=== PATIENT | female | born 1965 | race American Indian/Alaskan Native ===

== ENCOUNTER 2016-09-28 08:01 | Inpatient (IN) | payer MEDICAID, OTHER ==
[2016-09-28] MEDS ORDERED: Ondansetron 4 MG/2 ML SDV IVPUSH ONE (08:02)
[2016-09-28] MEDS: Nitroglycerin 0.4 MG Tab.SL SL PRN ×2 (08:18→08:29)
[2016-09-28] MEDS ORDERED: LORazepam 2 MG/ML MDV IVPUSH ONE (08:23)
[2016-09-28] MEDS ORDERED: HYDROmorphone 1 MG/ML Syringe IVPUSH ONE (08:37)
--- NOTE | 2016-09-28 08:37 | EDM.PDOC ---
[id number] [facility] Time Seen by Provider: 09/28/16 08:05 Source: Reports: Patient, EMS notes reviewed History Limitations: Reports: No limitations - History of Present Illness INITIAL COMMENTS - FREE TEXT/NARRATIVE: Pt developed chest pain in the nite. She began to vomit this am and has been vomiting all am. She is having left sided chest pain and she is continuously wretching. Timing/Duration: Reports: Hour(s):, Getting worse, Other ( vomiting continuously ) Location, General: Reports: chest, abdomen Associated Symptoms: Reports: chest pain, nausea/vomiting - Related Data Allergies/ADRs: Allergies Allergy/AdvReac Type Severity Reaction Status Date / Time No Known Allergies Allergy Verified 09/28/16 08:09 Home Meds: Home Meds Calcium Citrate/Vitamin D3 [[place] Calcium-Vit D 200-250] 2 tab PO BID 09/28/16 [History] Gabapentin [Neurontin] 300 mg PO TID 09/28/16 [History] Insulin Aspart [Novolog Flexpen] 1 unit SQ BID 09/28/16 [History] Insulin Detemir [Levemir Flextouch] 24 unit SQ BEDTIME 09/28/16 [History] PARoxetine HCl [Paroxetine HCl] 20 mg PO DAILY 09/28/16 [History] busPIRone HCl [Buspirone HCl] 10 mg PO TID 09/28/16 [History] 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: Psychiatric History: Reports: Anxiety, Depression, PTSD Endocrine/Metabolic History: Reports: Diabetes, type II - Past Surgical History GI Surgical History: Reports: Appendectomy, Cholecystectomy Female Surgical History: Reports: section Social & Family History - Tobacco Use Smoking Status *Q: Never Smoker Second Hand Smoke Exposure: No - Caffeine Use Caffeine Use: Reports: Coffee - Alcohol Use Days Per Week of Alcohol Use: 0 - Recreational Drug Use Recreational Drug Use: Yes Recreational Drug Type: Reports: Marijuana/Hashish Recreational Drug Use Frequency: Socially ED ROS GENERAL - Review of Systems Review Of Systems: See Below Constitutional: Reports: weakness, fatigue HEENT: Reports: No symptoms Respiratory: Reports: No Symptoms Cardiovascular: Reports: Chest pain Endocrine: Reports: high glucose GI/Abdominal: Reports: Abdominal pain, Nausea, Vomiting : Reports: no symptoms Musculoskeletal: Reports: no symptoms Skin: Reports: no symptoms Neurological: Reports: No Symptoms Psychiatric: Reports: Agitation, Anxiety Immunologic: Reports: no symptoms ED EXAM, GENERAL - Physical Exam Exam: See Below Free Text/Narrative:: Pt arrived with left sided chest pain. She has been vomiting all am. She has no cardiac history. She did have chest pain all nite into the am. Exam Limited By: No limitations General Appearance: alert, anxious, severe distress, other (Pt has been at [facility] about 9 days. She developed chest pain in the nite and has been vomiting all nite. ) Ears: normal TMs Nose: normal inspection Throat/Mouth: Normal inspection Head: atraumatic Neck: normal inspection Respiratory/Chest: no respiratory distress Cardiovascular: regular rate, rhythm GI/Abdominal: soft, other (Pt has sig epigastric tenderness) Rectal (Female) Exam: Deferred Back Exam: normal inspection Extremities: normal inspection Neurological: alert, oriented, normal cognition Psychiatric: depressed mood Course - Vital Signs Last Recorded V/S: Last Vital Signs Temp 37.2 C 09/29/16 07:53 Pulse 77 09/29/16 07:53 Resp 19 09/29/16 07:53 BP 151/71 H 09/29/16 07:53 Pulse Ox 100 09/29/16 07:53 - Orders/Labs/Meds Labs: Laboratory Tests 09/28/16 09/28/16 09/28/16 Range/Units 00:05 08:05 08:05 WBC 7.9 (4.5-11.0) K/uL RBC 5.13 (3.30-5.50) M/uL Hgb 14.5 (12.0-15.0) g/dL Hct 42.3 (36.0-48.0) % MCV 83 (80-98) fL MCH 28 (27-31) pg MCHC 34 (32-36) % Plt Count 378 (150-400) K/uL Neut % (Auto) 71 H (36-66) % Lymph % (Auto) 21 L (24-44) % [place] % (Auto) 4 (2-6) % Eos % (Auto) 3 (2-4) % Baso % (Auto) 2 H (0-1) % PT (9.5-12.0) sec INR (0.80-1.20) Sodium (140-148) mmol/L Potassium (3.6-5.2) mmol/L Chloride (100-108) mmol/L Carbon Dioxide (21-32) mmol/L Anion Gap (5.0-14.0) mmol/L BUN (7-18) mg/dL Creatinine (0.6-1.0) mg/dL Est Cr Clr Drug Dosing mL/min Estimated GFR (MDRD) (>60) Glucose (74-106) mg/dL Calcium (8.5-10.1) mg/dL Total Bilirubin (0.2-1.0) mg/dL AST (15-37) U/L ALT (12-78) U/L Alkaline Phosphatase (46-116) U/L Creatine Kinase 34 (26-192) U/L CK-MB (CK-2) 0.0 (0-3.6) mg/mL Troponin I < 0.017 < 0.017 (0.000-0.056) ng/mL C-Reactive Protein (0.0-0.3) mg/dL Total Protein (6.4-8.2) g/dL Albumin (3.4-5.0) g/dL Globulin (2.3-3.5) g/dL Albumin/Globulin Ratio (1.2-2.2) Amylase (25-115) U/L Lipase 575 H (73-393) U/L 09/28/16 09/28/16 09/28/16 Range/Units 08:05 08:05 08:05 WBC (4.5-11.0) K/uL RBC (3.30-5.50) M/uL Hgb (12.0-15.0) g/dL Hct (36.0-48.0) % MCV (80-98) fL MCH (27-31) pg MCHC (32-36) % Plt Count (150-400) K/uL Neut % (Auto) (36-66) % Lymph % (Auto) (24-44) % [place] % (Auto) (2-6) % Eos % (Auto) (2-4) % Baso % (Auto) (0-1) % PT 10.0 (9.5-12.0) sec INR 0.95 (0.80-1.20) Sodium 143 (140-148) mmol/L Potassium 4.1 (3.6-5.2) mmol/L Chloride 107 (100-108) mmol/L Carbon Dioxide 23 (21-32) mmol/L Anion Gap 12.9 (5.0-14.0) mmol/L BUN 13 (7-18) mg/dL Creatinine 0.7 (0.6-1.0) mg/dL Est Cr Clr Drug Dosing 70.13 mL/min Estimated GFR (MDRD) > 60 (>60) Glucose 333 H (74-106) mg/dL Calcium 8.8 (8.5-10.1) mg/dL Total Bilirubin 0.4 (0.2-1.0) mg/dL AST 15 (15-37) U/L ALT 30 (12-78) U/L Alkaline Phosphatase 79 (46-116) U/L Creatine Kinase 56 (26-192) U/L CK-MB (CK-2) (0-3.6) mg/mL Troponin I (0.000-0.056) ng/mL C-Reactive Protein (0.0-0.3) mg/dL Total Protein 7.7 (6.4-8.2) g/dL Albumin 4.0 (3.4-5.0) g/dL Globulin 3.7 H (2.3-3.5) g/dL Albumin/Globulin Ratio 1.1 L (1.2-2.2) Amylase 81 (25-115) U/L Lipase 416 H (73-393) U/L 09/28/16 Range/Units 08:52 WBC (4.5-11.0) K/uL RBC (3.30-5.50) M/uL Hgb (12.0-15.0) g/dL Hct (36.0-48.0) % MCV (80-98) fL MCH (27-31) pg MCHC (32-36) % Plt Count (150-400) K/uL Neut % (Auto) (36-66) % Lymph % (Auto) (24-44) % [place] % (Auto) (2-6) % Eos % (Auto) (2-4) % Baso % (Auto) (0-1) % PT (9.5-12.0) sec INR (0.80-1.20) Sodium (140-148) mmol/L Potassium (3.6-5.2) mmol/L Chloride (100-108) mmol/L Carbon Dioxide (21-32) mmol/L Anion Gap (5.0-14.0) mmol/L BUN (7-18) mg/dL Creatinine (0.6-1.0) mg/dL Est Cr Clr Drug Dosing mL/min Estimated GFR (MDRD) (>60) Glucose (74-106) mg/dL Calcium (8.5-10.1) mg/dL Total Bilirubin (0.2-1.0) mg/dL AST (15-37) U/L ALT (12-78) U/L Alkaline Phosphatase (46-116) U/L Creatine Kinase (26-192) U/L CK-MB (CK-2) (0-3.6) mg/mL Troponin I (0.000-0.056) ng/mL C-Reactive Protein 0.14 (0.0-0.3) mg/dL Total Protein (6.4-8.2) g/dL Albumin (3.4-5.0) g/dL Globulin (2.3-3.5) g/dL Albumin/Globulin Ratio (1.2-2.2) Amylase (25-115) U/L Lipase (73-393) U/L Meds: Medications Discontinued Medications Generic Name Dose Route Start Last Admin Trade Name Freq PRN Reason Stop Dose Admin Acetaminophen 650 mg 09/28/16 10:48 09/29/16 07:28 Tylenol PO 650 mg Q4H PRN Administration Pain Buspirone HCl 10 mg 09/28/16 14:00 09/29/16 08:34 Buspar PO 10 mg TID EYAL Administration Calcium Carbonate 1 tab 09/28/16 21:00 09/29/16 08:34 Caltrate 600+D 1500 Mg-400 Units PO 1 tab BID EYAL Administration Dextrose 15 gm 09/28/16 10:49 Glutose 15 PO ASDIRECTED PRN HYPOGLYCEMIA Dextrose/Water 50 ml 09/28/16 10:49 Dextrose 50% In Water IVPUSH ASDIRECTED PRN HYPOGLYCEMIA Enoxaparin Sodium 40 mg 09/28/16 21:00 09/28/16 20:41 Lovenox SUBCUT 40 mg BEDTIME EYAL Administration Gabapentin 300 mg 09/28/16 14:00 09/29/16 08:34 Neurontin PO 300 mg TID EYAL Administration Glucagon 1 mg 09/28/16 10:49 Glucagen IM ASDIRECTED PRN HYPOGLYCEMIA Hydromorphone HCl 1 mg 09/28/16 08:37 09/28/16 08:45 Dilaudid IVPUSH 09/28/16 08:38 1 mg ONETIME ONE Administration Sodium Chloride 1,000 mls @ 999 mls/hr 09/28/16 09:00 09/28/16 08:56 Normal Saline IV 999 mls/hr ASDIRECTED EYAL Administration Insulin Aspart 0 - 5 unit 09/28/16 10:49 09/29/16 07:28 Novolog SUBCUT 1 units QID PRN Administration LOW CORRECTIONAL DOSE Protocol Insulin Detemir 24 unit 09/28/16 21:00 09/28/16 20:41 Levemir SUBCUT 24 units BEDTIME EYAL Administration Lorazepam 0.5 mg 09/28/16 08:23 09/28/16 08:49 Ativan IVPUSH 09/28/16 08:24 0.5 mg ONETIME ONE Administration Nitroglycerin 0.4 mg 09/28/16 08:14 09/28/16 08:29 Nitrostat SL 09/28/16 08:25 0.4 mg Q5M PRN Administration Chest Pain Ondansetron HCl 4 mg 09/28/16 08:02 09/28/16 08:15 Zofran IVPUSH 09/28/16 08:03 4 mg ONETIME ONE Administration Ondansetron HCl 4 mg 09/28/16 10:48 Zofran Odt PO Q4H PRN Nausea/Vomiting Ondansetron HCl 4 mg 09/28/16 10:48 Zofran IVPUSH Q4H PRN Nausea/Vomiting Paroxetine HCl 20 mg 09/28/16 11:00 09/29/16 08:34 Paxil PO 20 mg DAILY EYAL Administration Sodium Chloride 10 ml 09/28/16 09:16 Saline Flush FLUSH ASDIRECTED PRN Keep Vein Open - Re-Assessments/Exams Free Text/Narrative Re-Assessment/Exam: 09/28/16 08:[address] elevation. This could be a normal variant for her. She has continued to vomit markedly. She has a normal trop and she has a mild elevation in her lipase. ;l Departure - Departure Time of Disposition: 07:55 Disposition: Admitted As Inpatient 64 Reason for Transfer *Q: Primary PCI Indicated Condition: fair Clinical Impression: Pancreatitis, Atypical chest pain
[2016-09-28] MEDS ORDERED: Sodium Chloride 0.9% 1,000 ML IV SCH (09:00)
[2016-09-28] MEDS ORDERED: Sodium Chloride 0.9% 10 ML Syringe FLUSH PRN (09:16)
--- NOTE | 2016-09-28 09:49 | PCM.HP ---
H&P History of Present Illness - General Date of Service: 09/28/16 Admit Problem/Dx: Admission Diagnosis/Problem Admission Diagnosis/Problem Angina - History of Present Illness Initial Comments - Free Text/Narative: Lavonne is a 51-year-old who came to [place] because of drug use denied alcohol. She's been smoking marijuana on a regular basis. She started to have chest pain 11:30 last night that lasted about 1 minute which was a squeezing type sensation but she also had a dull chest pain that would come and go through the night. She had 3 episodes of a squeezing type sensation that he went to the nurse and the nurse gave her nitroglycerin and she became unconscious and EMS was called. She came into the room she was calm admission. She denies any myocardial infarction in the past she said her mother has had a stroke and does not know her father's history. Her other siblings apparently there is no history of any cardiac disease. She also has pain in the epigastric area and she vomited last night. This morning earlier she tried to eat a banana and then that she vomited. She is a known type II diabetic taking insulin on a regular basis. Onset of Symptoms: Reports: today Duration of Symptoms: Reports: Day(s): Location: Reports: chest Quality: Reports: Ache, Dull Severity: moderate Improves with: Reports: None Worsens with: Reports: Eating Anterior Chest Pain Score (Numeric/FACES): 7 - Related Data Allergies/Adverse Reactions: Allergies Allergy/AdvReac Type Severity Reaction Status Date / Time No Known Allergies Allergy Verified 09/28/16 08:09 Home Medications: Home Meds Calcium Citrate/Vitamin D3 [[place] Calcium-Vit D 200-250] 2 tab PO BID 09/28/16 [History] Gabapentin [Neurontin] 300 mg PO TID 09/28/16 [History] Insulin Aspart [Novolog Flexpen] 1 unit SQ BID 09/28/16 [History] Insulin Detemir [Levemir Flextouch] 24 unit SQ BEDTIME 09/28/16 [History] PARoxetine HCl [Paroxetine HCl] 20 mg PO DAILY 09/28/16 [History] busPIRone HCl [Buspirone HCl] 10 mg PO TID 09/28/16 [History] 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: Psychiatric History: Reports: Anxiety, Depression, PTSD Endocrine/Metabolic History: Reports: Diabetes, type II - Past Surgical History GI Surgical History: Reports: Appendectomy, Cholecystectomy Female Surgical History: Reports: section Social & Family History - Tobacco Use Smoking Status *Q: Never Smoker Second Hand Smoke Exposure: No - Caffeine Use Caffeine Use: Reports: Coffee - Alcohol Use Days Per Week of Alcohol Use: 0 - Recreational Drug Use Recreational Drug Use: Yes Recreational Drug Type: Reports: Marijuana/Hashish Recreational Drug Use Frequency: Socially H&P Review of Systems - Review of Systems: Review Of Systems: See Below General: Reports: weakness, fatigue HEENT: Reports: no symptoms Pulmonary: Reports: Shortness of Breath Cardiovascular: Reports: chest pain Gastrointestinal: Reports: Abdominal pain, Vomiting Genitourinary: Reports: no symptoms Musculoskeletal: Reports: back pain Skin: Reports: no symptoms Psychiatric: Reports: depression Exam - Exam Exam: See Below - Vital Signs Vital Signs: Last Vital Signs Temp 98.2 F 09/28/16 08:31 Pulse 62 09/28/16 08:46 Resp 20 09/28/16 08:46 BP 161/95 H 09/28/16 08:46 Pulse Ox 98 09/28/16 08:46 Weight: 145 lb - Exam General: alert, oriented, 4 HEENT: PERRLA, Hearing intact, Mucosa moist & pink, Nares patent, Normal nasal septum, Posterior pharynx clear, Conjunctiva clear, EOMI, EACs clear, TMs clear Neck: supple, trachea midline, 2 Lungs: Clear to auscultation Cardiovascular: regular rate Abdomen: tenderness Extremities: 3, normal inspection, 10 Peripheral Pulses: 1+: radial (L), radial (R) Skin: warm, dry, intact Neuro Extensive - Mental Status: alert, oriented x3, normal mood/affect, normal cognition Neuro Extensive - Motor, Sensory, Reflexes: CN II-XII intact, normal gait, normal reflexes Psychiatric: alert, normal affect, normal mood - Patient Data Lab Results last 24 hrs: Laboratory Results - last 24 hr 09/28/16 09/28/16 09/28/16 Range/Units 08:05 08:05 08:05 WBC 7.9 (4.5-11.0) K/uL RBC 5.13 (3.30-5.50) M/uL Hgb 14.5 (12.0-15.0) g/dL Hct 42.3 (36.0-48.0) % MCV 83 (80-98) fL MCH 28 (27-31) pg MCHC 34 (32-36) % Plt Count 378 (150-400) K/uL Neut % (Auto) 71 H (36-66) % Lymph % (Auto) 21 L (24-44) % [place] % (Auto) 4 (2-6) % Eos % (Auto) 3 (2-4) % Baso % (Auto) 2 H (0-1) % PT (9.5-12.0) sec INR (0.80-1.20) Sodium 143 (140-148) mmol/L Potassium 4.1 (3.6-5.2) mmol/L Chloride 107 (100-108) mmol/L Carbon Dioxide 23 (21-32) mmol/L Anion Gap 12.9 (5.0-14.0) mmol/L BUN 13 (7-18) mg/dL Creatinine 0.7 (0.6-1.0) mg/dL Est Cr Clr Drug Dosing 70.13 mL/min Estimated GFR (MDRD) > 60 (>60) Glucose 333 H (74-106) mg/dL Calcium 8.8 (8.5-10.1) mg/dL Total Bilirubin 0.4 (0.2-1.0) mg/dL AST 15 (15-37) U/L ALT 30 (12-78) U/L Alkaline Phosphatase 79 (46-116) U/L Creatine Kinase 56 (26-192) U/L Troponin I < 0.017 (0.000-0.056) ng/mL C-Reactive Protein (0.0-0.3) mg/dL Total Protein 7.7 (6.4-8.2) g/dL Albumin 4.0 (3.4-5.0) g/dL Globulin 3.7 H (2.3-3.5) g/dL Albumin/Globulin Ratio 1.1 L (1.2-2.2) Amylase (25-115) U/L Lipase (73-393) U/L 09/28/16 09/28/16 09/28/16 Range/Units 08:05 08:05 08:52 WBC (4.5-11.0) K/uL RBC (3.30-5.50) M/uL Hgb (12.0-15.0) g/dL Hct (36.0-48.0) % MCV (80-98) fL MCH (27-31) pg MCHC (32-36) % Plt Count (150-400) K/uL Neut % (Auto) (36-66) % Lymph % (Auto) (24-44) % [place] % (Auto) (2-6) % Eos % (Auto) (2-4) % Baso % (Auto) (0-1) % PT 10.0 (9.5-12.0) sec INR 0.95 (0.80-1.20) Sodium (140-148) mmol/L Potassium (3.6-5.2) mmol/L Chloride (100-108) mmol/L Carbon Dioxide (21-32) mmol/L Anion Gap (5.0-14.0) mmol/L BUN (7-18) mg/dL Creatinine (0.6-1.0) mg/dL Est Cr Clr Drug Dosing mL/min Estimated GFR (MDRD) (>60) Glucose (74-106) mg/dL Calcium (8.5-10.1) mg/dL Total Bilirubin (0.2-1.0) mg/dL AST (15-37) U/L ALT (12-78) U/L Alkaline Phosphatase (46-116) U/L Creatine Kinase (26-192) U/L Troponin I (0.000-0.056) ng/mL C-Reactive Protein 0.14 (0.0-0.3) mg/dL Total Protein (6.4-8.2) g/dL Albumin (3.4-5.0) g/dL Globulin (2.3-3.5) g/dL Albumin/Globulin Ratio (1.2-2.2) Amylase 81 (25-115) U/L Lipase 416 H (73-393) U/L Result Diagrams: 09/29/16 04:20 09/29/16 04:20 *Q Meaningful Use (ADM) - VTE *Q VTE Criteria *Q: - Stroke *Q Stroke Criteria *Q: - AMI *Q AMI Criteria *Q: Problem List Initiated/Reviewed/Updated: Yes Orders Last 24hrs: Active Orders 24 hr Category Date Time Status Patient Status [ADT] Routine ADT 09/28/16 09:16 Ordered Ambulate [RC] QID Care 09/28/16 09:16 Ordered Bedrest Bathroom Privileges [RC] ASDIRECTED Care 09/28/16 09:16 Ordered Blood Glucose Check, Bedside [RC] QIDACANDBED Care 09/28/16 09:16 Ordered Cardiac Monitoring [RC] .As Directed Care 09/28/16 09:19 Ordered EKG Documentation Completion [RC] ASDIRECTED Care 09/28/16 08:02 Active EKG Documentation Completion [RC] ASDIRECTED Care 09/28/16 09:25 Ordered Height and Weight [RC] DAILY Care 09/28/16 09:16 Ordered Intake and Output [RC] QSHIFT Care 09/28/16 09:19 Ordered Oxygen Therapy [RC] PRN Care 09/28/16 09:16 Ordered Up ad Radha [RC] ASDIRECTED Care 09/28/16 09:16 Ordered Up to Chair [RC] QID Care 09/28/16 09:16 Ordered VTE/DVT Education [RC] Per Unit Routine Care 09/28/16 09:16 Ordered Vital Signs [RC] Q4H Care 09/28/16 09:16 Ordered Regular Diet [DIET] Diet 09/28/16 Lunch Ordered Chest 1V Frontal [CR] Stat Exams 09/28/16 08:03 Taken Chest 2V [CR] Routine Exams 09/29/16 05:11 Ordered BASIC METABOLIC PANEL,BMP [CHEM] Routine Lab 09/29/16 05:11 Ordered CBC WITH AUTO DIFF [HEME] AM Lab 09/29/16 05:11 Ordered CK W CKMB [CHEM] Timed Lab 09/28/16 09:16 Ordered CKMB [CHEM] Timed Lab 09/28/16 09:16 Ordered GLUCOSE POC LAB TO COLLECT [POC] QIDACANDBED Lab 09/28/16 11:30 Ordered GLUCOSE POC LAB TO COLLECT [POC] QIDACANDBED Lab 09/28/16 16:30 Ordered GLUCOSE POC LAB TO COLLECT [POC] QIDACANDBED Lab 09/28/16 21:00 Ordered LIPASE [CHEM] Timed Lab 09/28/16 09:29 Ordered TROPONIN I [CHEM] Timed Lab 09/28/16 09:16 Ordered UA W/MICROSCOPIC [URIN] Urgent Lab 09/28/16 08:01 Uncollected Calcium Citrate/Vitamin D3 [[facility] Calcium-Vit D 200- Med 09/28/16 21:00 Ordered 250] 2 tab PO BID Enoxaparin [Lovenox] Med 09/29/16 09:00 Ordered 40 mg SUBCUT DAILY Gabapentin [Neurontin] Med 09/28/16 14:00 Ordered 300 mg PO TID Insulin Aspart [NovoLOG] Med 09/28/16 12:00 Ordered 1 unit SUBCUT TIDMEALS Insulin Detemir [Levemir] Med 09/28/16 21:00 Ordered 24 unit SUBCUT BEDTIME PARoxetine [Paxil] Med 09/28/16 09:45 Ordered 20 mg PO DAILY Sodium Chloride 0.9% [Normal Saline] 1,000 ml Med 09/28/16 09:00 Active IV ASDIRECTED Sodium Chloride 0.9% [Saline Flush] Med 09/28/16 09:16 Ordered 10 ml FLUSH ASDIRECTED PRN busPIRone HCl [Buspirone HCl] Med 09/28/16 14:00 Ordered 10 mg PO TID Saline Lock Insert [OM.PC] Routine Oth 09/28/16 09:16 Ordered Resuscitation Status Routine Resus Stat 09/28/16 09:16 Ordered EKG 12 Lead [EK] Routine Ther 09/28/16 08:02 Ordered EKG 12 Lead [EK] Routine Ther 09/29/16 05:11 Ordered Medication Orders Enoxaparin Sodium (Lovenox) 40 mg SUBCUT DAILY EYAL Sodium Chloride (Normal Saline) 1,000 mls @ 999 mls/hr IV ASDIRECTED EYAL Last Admin: 09/28/16 08:56 Dose: 999 mls/hr Sodium Chloride (Saline Flush) 10 ml FLUSH ASDIRECTED PRN PRN Reason: Keep Vein Open Assessment/Plan Comment:: Assessment/plan: #1. Angina. There is minimal changes in the electrocardiogram and the enzymes so far are negative. I will do serial cardiac enzymes and placed in the ICU for monitoring. #2. Diabetes type 2. Will give insulin and follow blood sugars. #3. Drug addiction, THC. #4. Elevation of lipase. I will follow serial lipase readings and investigate further if the levels rise to
[2016-09-28] MEDS ORDERED: Ondansetron 4 MG/2 ML SDV IVPUSH PRN (10:48)
[2016-09-28] MEDS ORDERED: Ondansetron 4 MG Tab.DIS PO PRN (10:48)
[2016-09-28] MEDS ORDERED: Glucagon,Human Recombinant 1 MG Vial IM PRN (10:49)
[2016-09-28] MEDS ORDERED: 50% Dextrose in Water 50 ML Syringe IVPUSH PRN (10:49)
[2016-09-28] MEDS ORDERED: Glucose Gel 15 GM in 37.5 GM Tube PO PRN (10:49)
[2016-09-28] MEDS: Insulin Aspart 100 Units/ML 3 ML Pen SUBCUT PRN ×3 (11:16→20:42)
[2016-09-28] MEDS ORDERED: Insulin Aspart 100 Units/ML 3 ML Pen SUBCUT SCH (12:00)
[2016-09-28] MEDS ORDERED: BUSPIRONE HCL 10 MG PO SCH (14:00)
[2016-09-28] MEDS: Acetaminophen 325 MG Tab PO PRN (14:32)
[2016-09-28] MEDS: Gabapentin 300 MG Cap PO SCH ×2 (14:32→20:41)
[2016-09-28] MEDS: PARoxetine 20 MG Tab PO SCH (14:32)
[2016-09-28] MEDS: busPIRone 10 MG Tab PO SCH ×2 (14:32→20:41)
[2016-09-28] MEDS: Calcium Carbonate/Vitamin D3 1500 MG-400 Units Tab PO SCH (20:41)
[2016-09-28] MEDS ORDERED: CALCIUM CITRATE PO SCH (21:00)
[2016-09-28] MEDS ORDERED: Insulin Detemir 100 Units/ML 3 ML Pen SUBCUT SCH (21:00)
[2016-09-28] MEDS ORDERED: [UNRECOGNIZED DRUG - OTHER] PO SCH (21:00)
[2016-09-28] MEDS ORDERED: Enoxaparin 40 MG/0.4 ML Syringe SUBCUT SCH (21:00)
[2016-09-28] MEDS ORDERED: VITAMIN D3 PO SCH (21:00)
[2016-09-29] MEDS: Acetaminophen 325 MG Tab PO PRN ×2 (03:17→07:28)
[2016-09-29] MEDS: Insulin Aspart 100 Units/ML 3 ML Pen SUBCUT PRN (07:28)
[2016-09-29 07:54] VITALS: BP 151/71
[2016-09-29] MEDS: PARoxetine 20 MG Tab PO SCH (08:34)
[2016-09-29] MEDS: busPIRone 10 MG Tab PO SCH (08:34)
[2016-09-29] MEDS: Calcium Carbonate/Vitamin D3 1500 MG-400 Units Tab PO SCH (08:34)
[2016-09-29] MEDS: Gabapentin 300 MG Cap PO SCH (08:34)
--- NOTE | 2016-09-29 09:09 | CR ---
Chest 1V Frontal HISTORY: chest pain COMPARISON: None FINDINGS: Lungs appear clear and normally aerated. Cardiomediastinal silhouette is within normal limits. No va scular redistribution or pleural fluid can be seen. Mild degenerative changes are noted lower thorac ic spine. IMPRESSION: No acute chest abnormality identified.
--- NOTE | 2016-09-29 09:47 | CR ---
Chest 2V HISTORY: Chest pain COMPARISON: 09/28/2016 FINDINGS: Lungs appear clear and normally aerated. Cardiomediastinal silhouette is within normal limits. No va scular redistribution or pleural fluid can be seen. Anterolateral aspects are noted mid to lower tho racic spine. IMPRESSION: No acute chest abnormality or significant interval change is identified.
--- NOTE | 2016-09-29 20:06 | PCM.PN ---
- General Info Date of Service: 09/29/16 Subjective Update: She continues to have slight chest pain which is continuous on the left side of her chest. This is dull in character and does not know what makes it worse or better. Functional Status: Reports: pain controlled - Review of Systems General: Reports: No Symptoms HEENT: Reports: no symptoms Pulmonary: Reports: no symptoms Cardiovascular: Reports: Chest Pain Gastrointestinal: Reports: No symptoms Genitourinary: Reports: no symptoms Musculoskeletal: Reports: no symptoms Skin: Reports: no symptoms Neurological: Reports: No Symptoms Psychiatric: Reports: no symptoms - Patient Data Vitals - most recent: Last Vital Signs Temp 98.9 F 09/29/16 07:53 Pulse 77 09/29/16 07:53 Resp 19 09/29/16 07:53 BP 151/71 H 09/29/16 07:53 Pulse Ox 100 09/29/16 07:53 Weight - most recent: 145 lb I&O - last 24 hours: Intake & Output 09/29/16 09/29/16 09/29/16 06:59 14:59 22:59 Intake Total 240 Output Total 600 Balance -600 240 Lab Results last 24 hrs: Laboratory Results - last 24 hr 09/29/16 09/29/16 09/29/16 Range/Units 04:20 04:20 09:24 WBC 6.7 (4.5-11.0) K/uL RBC 4.93 (3.30-5.50) M/uL Hgb 13.7 (12.0-15.0) g/dL Hct 41.2 (36.0-48.0) % MCV 84 (80-98) fL MCH 28 (27-31) pg MCHC 33 (32-36) % Plt Count 333 (150-400) K/uL Neut % (Auto) 53 (36-66) % Lymph % (Auto) 35 (24-44) % [place] % (Auto) 6 (2-6) % Eos % (Auto) 4 (2-4) % Baso % (Auto) 2 H (0-1) % Sodium 144 (140-148) mmol/L Potassium 4.2 (3.6-5.2) mmol/L Chloride 108 (100-108) mmol/L Carbon Dioxide 29 (21-32) mmol/L Anion Gap 7.4 (5.0-14.0) mmol/L BUN 14 (7-18) mg/dL Creatinine 0.8 (0.6-1.0) mg/dL Est Cr Clr Drug Dosing 61.37 mL/min Estimated GFR (MDRD) > 60 (>60) Glucose 200 H (74-106) mg/dL Calcium 8.7 (8.5-10.1) mg/dL Urine Opiates Screen Positive H (NEGATIVE) Ur Oxycodone Screen Negative (NEGATIVE) Urine Methadone Screen Negative (NEGATIVE) Ur Propoxyphene Screen Negative (NEGATIVE) Ur Barbiturates Screen Negative (NEGATIVE) Ur Tricyclics Screen Negative (NEGATIVE) Ur Phencyclidine Scrn Negative (NEGATIVE) Ur Amphetamine Screen Negative (NEGATIVE) U Methamphetamines Scrn Negative (NEGATIVE) Urine MDMA Screen Negative (NEGATIVE) U Benzodiazepines Scrn Negative (NEGATIVE) U Cocaine Metab Screen Negative (NEGATIVE) U Marijuana (THC) Screen Positive H (NEGATIVE) Med Orders - Current: Current Medications Discontinued Medications Acetaminophen (Tylenol) 650 mg PO Q4H PRN PRN Reason: Pain Last Admin: 09/29/16 07:28 Dose: 650 mg Buspirone HCl (Buspar) 10 mg PO TID [facility] Last Admin: 09/29/16 08:34 Dose: 10 mg Calcium Carbonate (Caltrate 600+D 1500 Mg-400 Units) 1 tab PO BID [facility] Last Admin: 09/29/16 08:34 Dose: 1 tab Dextrose (Glutose 15) 15 gm PO ASDIRECTED PRN PRN Reason: HYPOGLYCEMIA Dextrose/Water (Dextrose 50% In Water) 50 ml IVPUSH ASDIRECTED PRN PRN Reason: HYPOGLYCEMIA Enoxaparin Sodium (Lovenox) 40 mg SUBCUT BEDTIME [facility] Last Admin: 09/28/16 20:41 Dose: 40 mg Gabapentin (Neurontin) 300 mg PO TID [facility] Last Admin: 09/29/16 08:34 Dose: 300 mg Glucagon (Glucagen) 1 mg IM ASDIRECTED PRN PRN Reason: HYPOGLYCEMIA Hydromorphone HCl (Dilaudid) 1 mg IVPUSH ONETIME ONE Stop: 09/28/16 08:38 Last Admin: 09/28/16 08:45 Dose: 1 mg Sodium Chloride (Normal Saline) 1,000 mls @ 999 mls/hr IV ASDIRECTED [facility] Last Admin: 09/28/16 08:56 Dose: 999 mls/hr Insulin Aspart (Novolog) 0 - 5 unit SUBCUT QID PRN; Protocol PRN Reason: LOW CORRECTIONAL DOSE Last Admin: 09/29/16 07:28 Dose: 1 units Insulin Detemir (Levemir) 24 unit SUBCUT BEDTIME [facility] Last Admin: 09/28/16 20:41 Dose: 24 units Lorazepam (Ativan) 0.5 mg IVPUSH ONETIME ONE Stop: 09/28/16 08:24 Last Admin: 09/28/16 08:49 Dose: 0.5 mg Nitroglycerin (Nitrostat) 0.4 mg SL Q5M PRN PRN Reason: Chest Pain Stop: 09/28/16 08:25 Last Admin: 09/28/16 08:29 Dose: 0.4 mg Ondansetron HCl (Zofran) 4 mg IVPUSH ONETIME ONE Stop: 09/28/16 08:03 Last Admin: 09/28/16 08:15 Dose: 4 mg Ondansetron HCl (Zofran Odt) 4 mg PO Q4H PRN PRN Reason: Nausea/Vomiting Ondansetron HCl (Zofran) 4 mg IVPUSH Q4H PRN PRN Reason: Nausea/Vomiting Paroxetine HCl (Paxil) 20 mg PO DAILY [facility] Last Admin: 09/29/16 08:34 Dose: 20 mg Sodium Chloride (Saline Flush) 10 ml FLUSH ASDIRECTED PRN PRN Reason: Keep Vein Open - Exam General: alert, oriented HEENT: Pupils equal, Pupils reactive, EOMI, Mucous membr. moist/pink Neck: supple Lungs: Clear to auscultation, Normal respiratory effort Cardiovascular: Regular Rate, Regular Rhythm Abdomen: bowel sounds present, soft, no tenderness, no distension Extremities: no edema Skin: warm, dry, intact Neurological: no new focal deficit Psy/Mental Status: alert, normal affect, normal mood - Problem List Review Problem List Initiated/Reviewed/Updated: Yes - My Orders Last 24 Hours: My Active Orders 09/29/16 05:11 EKG 12 Lead [EK] Routine 09/29/16 08:33 Ready for Discharge [RC] PER UNIT ROUTINE - Plan Plan:: Assessment/plan: #1. Angina. All enzymes were normal showing no evidence of an acute heart problem #2. Diabetes type 2. Borderline control #3. Drug addiction, THC. #4. Elevation of lipase. Lipase levels did drop and she is asymptomatic in the abdomen. No discharge to the alcohol/drug rehabilitation facility.
--- NOTE | 2016-09-29 20:09 | PCM.HP ---
H&P History of Present Illness - General Admit Problem/Dx: Admission Diagnosis/Problem Admission Diagnosis/Problem Angina This is a progress note day of discharge - History of Present Illness Initial Comments - Free Text/Narative: She was admitted from [facility] chest pain had concerned about possible an acute cardiac problem. The chest pain started at 1:00 in the morning associated with vomiting. There was a negative cardiac history in the past. Anterior Chest Pain Score (Numeric/FACES): 7 - Related Data Allergies/Adverse Reactions: Allergies Allergy/AdvReac Type Severity Reaction Status Date / Time No Known Allergies Allergy Verified 09/28/16 08:09 Home Medications: Home Meds Calcium Citrate/Vitamin D3 [[place] Calcium-Vit D 200-250] 2 tab PO BID 09/28/16 [History] Gabapentin [Neurontin] 300 mg PO TID 09/28/16 [History] Insulin Aspart [Novolog Flexpen] 1 unit SQ BID 09/28/16 [History] Insulin Detemir [Levemir Flextouch] 24 unit SQ BEDTIME 09/28/16 [History] PARoxetine HCl [Paroxetine HCl] 20 mg PO DAILY 09/28/16 [History] busPIRone HCl [Buspirone HCl] 10 mg PO TID 09/28/16 [History] Past Medical History [employer] History: Reports: Psychiatric History: Reports: Anxiety, Depression, PTSD Endocrine/Metabolic History: Reports: Diabetes, type II - Past Surgical History GI Surgical History: Reports: Appendectomy, Cholecystectomy Female Surgical History: Reports: section Social & Family History - Tobacco Use Smoking Status *Q: Never Smoker Years of Tobacco use: 26 Packs/Tins Daily: 1 Used Tobacco, but Quit: Yes Month Tobacco Last Used: december Second Hand Smoke Exposure: No - Caffeine Use Caffeine Use: Reports: Coffee - Alcohol Use Days Per Week of Alcohol Use: 0 - Recreational Drug Use Recreational Drug Use: Yes Recreational Drug Type: Reports: Marijuana/Hashish Recreational Drug Use Frequency: Socially H&P Review of Systems - Review of Systems: Review Of Systems: See Below General: Reports: no symptoms HEENT: Reports: no symptoms Pulmonary: Reports: No Symptoms Cardiovascular: Reports: chest pain Gastrointestinal: Reports: Nausea Genitourinary: Reports: no symptoms Musculoskeletal: Reports: no symptoms Skin: Reports: no symptoms Psychiatric: Reports: no symptoms Neurological: Reports: No Symptoms Hematologic/Lymphatic: Reports: no symptoms Immunologic: Reports: no symptoms Exam - Exam Exam: See Below - Vital Signs Vital Signs: Last Vital Signs Temp 98.9 F 09/29/16 07:53 Pulse 77 09/29/16 07:53 Resp 19 09/29/16 07:53 BP 151/71 H 09/29/16 07:53 Pulse Ox 100 09/29/16 07:53 Weight: 145 lb - Exam General: alert, oriented, 4 HEENT: PERRLA, Hearing intact, Mucosa moist & pink, Nares patent, Normal nasal septum, Posterior pharynx clear, Conjunctiva clear, EOMI, EACs clear, TMs clear Neck: supple, trachea midline, 2 Lungs: Clear to auscultation, Normal respiratory effort Cardiovascular: regular rate, regular rhythm Abdomen: normal bowel sounds, soft Back Exam: normal inspection, full range of motion, NT Peripheral Pulses: 1+: radial (L), radial (R) Skin: warm, dry, intact Neurological: cranial nerves intact, reflexes equal bilateral Neuro Extensive - Mental Status: alert, oriented x3, normal mood/affect, normal cognition - Patient Data Lab Results last 24 hrs: Laboratory Results - last 24 hr 09/29/16 09/29/16 09/29/16 Range/Units 04:20 04:20 09:24 WBC 6.7 (4.5-11.0) K/uL RBC 4.93 (3.30-5.50) M/uL Hgb 13.7 (12.0-15.0) g/dL Hct 41.2 (36.0-48.0) % MCV 84 (80-98) fL MCH 28 (27-31) pg MCHC 33 (32-36) % Plt Count 333 (150-400) K/uL Neut % (Auto) 53 (36-66) % Lymph % (Auto) 35 (24-44) % [place] % (Auto) 6 (2-6) % Eos % (Auto) 4 (2-4) % Baso % (Auto) 2 H (0-1) % Sodium 144 (140-148) mmol/L Potassium 4.2 (3.6-5.2) mmol/L Chloride 108 (100-108) mmol/L Carbon Dioxide 29 (21-32) mmol/L Anion Gap 7.4 (5.0-14.0) mmol/L BUN 14 (7-18) mg/dL Creatinine 0.8 (0.6-1.0) mg/dL Est Cr Clr Drug Dosing 61.37 mL/min Estimated GFR (MDRD) > 60 (>60) Glucose 200 H (74-106) mg/dL Calcium 8.7 (8.5-10.1) mg/dL Urine Opiates Screen Positive H (NEGATIVE) Ur Oxycodone Screen Negative (NEGATIVE) Urine Methadone Screen Negative (NEGATIVE) Ur Propoxyphene Screen Negative (NEGATIVE) Ur Barbiturates Screen Negative (NEGATIVE) Ur Tricyclics Screen Negative (NEGATIVE) Ur Phencyclidine Scrn Negative (NEGATIVE) Ur Amphetamine Screen Negative (NEGATIVE) U Methamphetamines Scrn Negative (NEGATIVE) Urine MDMA Screen Negative (NEGATIVE) U Benzodiazepines Scrn Negative (NEGATIVE) U Cocaine Metab Screen Negative (NEGATIVE) U Marijuana (THC) Screen Positive H (NEGATIVE) Result Diagrams: 09/29/16 04:20 09/29/16 04:20 *Q Meaningful Use (ADM) - VTE *Q VTE Criteria *Q: - Stroke *Q Stroke Criteria *Q: - AMI *Q AMI Criteria *Q: Problem List Initiated/Reviewed/Updated: Yes Orders Last 24hrs: Active Orders 24 hr Category Date Time Status Ready for Discharge [RC] PER UNIT ROUTINE Care 09/29/16 08:33 Active EKG 12 Lead [EK] Routine Ther 09/29/16 05:11 Ordered Assessment/Plan Comment:: Assessment/plan: #1. Angina. All enzymes were normal showing no evidence of an acute heart problem #2. Diabetes type 2. Borderline control #3. Drug addiction, THC. #4. Elevation of lipase. Lipase levels did drop and she is asymptomatic in the abdomen. No discharge to the alcohol/drug rehabilitation facility.
--- NOTE | 2016-09-29 20:13 | PCM.DCSUM1 ---
Discharge Summary - Hospital Course Free Text/Narrative:: Lavonne is a 51-year-old who came to [place] because of drug use denied alcohol. She's been smoking marijuana on a regular basis. She started to have chest pain 11:30 last night that lasted about 1 minute which was a squeezing type sensation but she also had a dull chest pain that would come and go through the night. She had 3 episodes of a squeezing type sensation that he went to the nurse and the nurse gave her nitroglycerin and she became unconscious and EMS was called. She came into the room she was calm admission. She denies any myocardial infarction in the past she said her mother has had a stroke and does not know her father's history. Her other siblings apparently there is no history of any cardiac disease. She also has pain in the epigastric area and she vomited last night. This morning earlier she tried to eat a banana and then that she vomited. She is a known type II diabetic taking insulin on a regular basis. - Discharge Data Discharge Date: 09/29/16 Discharge Disposition: DC/Tfer to [facility] Condition: Good - Patient Summary/Data Hospital Course: cardiac enzymes are normal and electrocardiogram did not show any acute cardiac pathology. Lipase returned to normal. I feel that the chest pain she is having is not cardiac in origin. - Patient Instructions Diet: Heart Healthy Diet Activity: As Tolerated - Discharge Plan Home Medications: Home Meds Calcium Citrate/Vitamin D3 [[place] Calcium-Vit D 200-250] 2 tab PO BID 09/28/16 [History] Gabapentin [Neurontin] 300 mg PO TID 09/28/16 [History] Insulin Aspart [Novolog Flexpen] 1 unit SQ BID 09/28/16 [History] Insulin Detemir [Levemir Flextouch] 24 unit SQ BEDTIME 09/28/16 [History] PARoxetine HCl [Paroxetine HCl] 20 mg PO DAILY 09/28/16 [History] busPIRone HCl [Buspirone HCl] 10 mg PO TID 09/28/16 [History] Patient Handouts: Acute Pancreatitis Forms: ED Department Discharge Referrals: PCP,None [Ordering Only Provider] - - Discharge Summary/Plan Comment DC Time >30 min.: Yes - Patient Data Vitals - Most Recent: Last Vital Signs Temp 98.9 F 09/29/16 07:53 Pulse 77 09/29/16 07:53 Resp 19 09/29/16 07:53 BP 151/71 H 09/29/16 07:53 Pulse Ox 100 09/29/16 07:53 Weight - Most Recent: 145 lb I&O - Last 24 hours: Intake & Output 09/29/16 09/29/16 09/29/16 06:59 14:59 22:59 Intake Total 240 Output Total 600 Balance -600 240 Lab Results - Last 24 hrs: Laboratory Results - last 24 hr 09/29/16 09/29/16 09/29/16 Range/Units 04:20 04:20 09:24 WBC 6.7 (4.5-11.0) K/uL RBC 4.93 (3.30-5.50) M/uL Hgb 13.7 (12.0-15.0) g/dL Hct 41.2 (36.0-48.0) % MCV 84 (80-98) fL MCH 28 (27-31) pg MCHC 33 (32-36) % Plt Count 333 (150-400) K/uL Neut % (Auto) 53 (36-66) % Lymph % (Auto) 35 (24-44) % [place] % (Auto) 6 (2-6) % Eos % (Auto) 4 (2-4) % Baso % (Auto) 2 H (0-1) % Sodium 144 (140-148) mmol/L Potassium 4.2 (3.6-5.2) mmol/L Chloride 108 (100-108) mmol/L Carbon Dioxide 29 (21-32) mmol/L Anion Gap 7.4 (5.0-14.0) mmol/L BUN 14 (7-18) mg/dL Creatinine 0.8 (0.6-1.0) mg/dL Est Cr Clr Drug Dosing 61.37 mL/min Estimated GFR (MDRD) > 60 (>60) Glucose 200 H (74-106) mg/dL Calcium 8.7 (8.5-10.1) mg/dL Urine Opiates Screen Positive H (NEGATIVE) Ur Oxycodone Screen Negative (NEGATIVE) Urine Methadone Screen Negative (NEGATIVE) Ur Propoxyphene Screen Negative (NEGATIVE) Ur Barbiturates Screen Negative (NEGATIVE) Ur Tricyclics Screen Negative (NEGATIVE) Ur Phencyclidine Scrn Negative (NEGATIVE) Ur Amphetamine Screen Negative (NEGATIVE) U Methamphetamines Scrn Negative (NEGATIVE) Urine MDMA Screen Negative (NEGATIVE) U Benzodiazepines Scrn Negative (NEGATIVE) U Cocaine Metab Screen Negative (NEGATIVE) U Marijuana (THC) Screen Positive H (NEGATIVE) Med Orders - Current: Current Medications Discontinued Medications Acetaminophen (Tylenol) 650 mg PO Q4H PRN PRN Reason: Pain Last Admin: 09/29/16 07:28 Dose: 650 mg Buspirone HCl (Buspar) 10 mg PO TID [facility] Last Admin: 09/29/16 08:34 Dose: 10 mg Calcium Carbonate (Caltrate 600+D 1500 Mg-400 Units) 1 tab PO BID [facility] Last Admin: 09/29/16 08:34 Dose: 1 tab Dextrose (Glutose 15) 15 gm PO ASDIRECTED PRN PRN Reason: HYPOGLYCEMIA Dextrose/Water (Dextrose 50% In Water) 50 ml IVPUSH ASDIRECTED PRN PRN Reason: HYPOGLYCEMIA Enoxaparin Sodium (Lovenox) 40 mg SUBCUT BEDTIME [facility] Last Admin: 09/28/16 20:41 Dose: 40 mg Gabapentin (Neurontin) 300 mg PO TID [facility] Last Admin: 09/29/16 08:34 Dose: 300 mg Glucagon (Glucagen) 1 mg IM ASDIRECTED PRN PRN Reason: HYPOGLYCEMIA Hydromorphone HCl (Dilaudid) 1 mg IVPUSH ONETIME ONE Stop: 09/28/16 08:38 Last Admin: 09/28/16 08:45 Dose: 1 mg Sodium Chloride (Normal Saline) 1,000 mls @ 999 mls/hr IV ASDIRECTED [facility] Last Admin: 09/28/16 08:56 Dose: 999 mls/hr Insulin Aspart (Novolog) 0 - 5 unit SUBCUT QID PRN; Protocol PRN Reason: LOW CORRECTIONAL DOSE Last Admin: 09/29/16 07:28 Dose: 1 units Insulin Detemir (Levemir) 24 unit SUBCUT BEDTIME [facility] Last Admin: 09/28/16 20:41 Dose: 24 units Lorazepam (Ativan) 0.5 mg IVPUSH ONETIME ONE Stop: 09/28/16 08:24 Last Admin: 09/28/16 08:49 Dose: 0.5 mg Nitroglycerin (Nitrostat) 0.4 mg SL Q5M PRN PRN Reason: Chest Pain Stop: 09/28/16 08:25 Last Admin: 09/28/16 08:29 Dose: 0.4 mg Ondansetron HCl (Zofran) 4 mg IVPUSH ONETIME ONE Stop: 09/28/16 08:03 Last Admin: 09/28/16 08:15 Dose: 4 mg Ondansetron HCl (Zofran Odt) 4 mg PO Q4H PRN PRN Reason: Nausea/Vomiting Ondansetron HCl (Zofran) 4 mg IVPUSH Q4H PRN PRN Reason: Nausea/Vomiting Paroxetine HCl (Paxil) 20 mg PO DAILY [facility] Last Admin: 09/29/16 08:34 Dose: 20 mg Sodium Chloride (Saline Flush) 10 ml FLUSH ASDIRECTED PRN PRN Reason: Keep Vein Open *Q Meaningful Use (DIS) - VTE *Q VTE Criteria *Q: - Stroke *Q Stroke Criteria *Q: - AMI *Q AMI Criteria *Q:
== END 2016-09-29 10:19 | DRG 203 ==
LOC: JP.ED 08:01 → JP.ICU 09:16
PROVIDERS: ADMIT Internal Medicine; ATTEND Internal Medicine
DX: R07.89 Other chest pain (principal); R10.13 Epigastric pain; R11.0 Nausea; E11.9 Type 2 diabetes mellitus without complications; Z79.4 Long term (current) use of insulin; F41.9 Anxiety disorder, unspecified; F32.9 Major depressive disorder, single episode, unspecified; F43.10 Post-traumatic stress disorder, unspecified; F12.20 Cannabis dependence, uncomplicated
CPT/HCPCS: 36415; 71010; 71010-26; 71020; 71020-26; 80048; 80053; 80305; 81001; 82150; 82550; 82553; 82962; 83690; 84484; 85025; 85610; 86140; 93005; 96361; 96374; 96375; 99285-25; A9270-GY; J1170; J1650; J2060; J2405; J7040

== ENCOUNTER 2018-02-06 11:02 | Emergency (ER) | payer MEDICAID, OTHER ==
[2018-02-06 11:18] VITALS: BP 156/68
--- NOTE | 2018-02-06 11:29 | EDM.PDOC ---
ED HPI GENERAL MEDICAL PROBLEM - General Chief Complaint: Abdominal Pain Stated Complaint: ABD PAIN VIA [place] Time Seen by Provider: 02/06/18 11:09 Source of Information: Reports: Patient History Limitations: Reports: No Limitations - History of Present Illness INITIAL COMMENTS - FREE TEXT/NARRATIVE: 52 yo female presents to ER via EMS complaining of epigastric and upper central ABD pain. pain started yesterday. nausea with vomiting this AM. diabetic has been unable to eat today. Last BM was this AM and was normal. She is passing gas. denies dysuria - Related Data Allergies Allergy/AdvReac Type Severity Reaction Status Date / Time No Known Allergies Allergy Verified 02/06/18 11:08 Home Meds: Home Meds Calcium Citrate/Vitamin D3 [[place] Calcium-Vit D 200-250] 2 tab PO BID 09/28/16 [History] Gabapentin [Neurontin] 300 mg PO TID 09/28/16 [History] Insulin Aspart [Novolog Flexpen] 1 unit SQ BID 09/28/16 [History] Insulin Detemir [Levemir Flextouch] 24 unit SQ BEDTIME 09/28/16 [History] Past Medical History [employer] History: Reports: Psychiatric History: Reports: Anxiety, Depression, PTSD Endocrine/Metabolic History: Reports: Diabetes, Type II - Past Surgical History GI Surgical History: Reports: Appendectomy, Cholecystectomy Female Surgical History: Reports: Section Social & Family History - Tobacco Use Smoking Status *Q: Never Smoker - Caffeine Use Caffeine Use: Reports: Coffee ED ROS GENERAL - Review of Systems Review Of Systems: See Below Constitutional: Reports: Fatigue. Denies: Fever, Chills Respiratory: Denies: Shortness of Breath, Wheezing Cardiovascular: Denies: Chest Pain GI/Abdominal: Reports: Abdominal Pain. Denies: Black Stool, Constipation, Diarrhea : Denies: Dysuria Skin: Denies: Rash ED EXAM, GI/ABD - Physical Exam Exam: See Below Exam Limited By: No Limitations General Appearance: Alert, WD/WN, No Apparent Distress Head: Atraumatic, Normocephalic Neck: Normal Inspection, Supple, Non-Tender, Full Range of Motion Respiratory/Chest: No Respiratory Distress, Lungs Clear, Normal Breath Sounds, No Accessory Muscle Use, Chest Non-Tender. No: Crackles, Rhonchi Cardiovascular: Regular Rate, Rhythm, No Edema, No Murmur GI/Abdominal Exam: Normal Bowel Sounds, Soft, No Organomegaly, No Distention, No Mass, Tender (epigastric) Neurological: Alert, Oriented Course - Vital Signs Last Recorded V/S: Last Vital Signs Temp 35.2 C L 02/06/18 11:16 Pulse 59 L 02/06/18 11:16 Resp 14 02/06/18 11:16 BP 156/68 H 02/06/18 11:16 Pulse Ox 97 02/06/18 11:16 - Orders/Labs/Meds Orders: Active Orders 24 hr Category Date Time Status UA W/MICROSCOPIC [URIN] Stat Lab 02/06/18 14:35 Ordered Sodium Chloride 0.9% [Normal Saline] 1,000 ml Med 02/06/18 11:30 Active IV ASDIRECTED Medication Orders Sodium Chloride (Normal Saline) 1,000 mls @ 500 mls/hr IV ASDIRECTED [facility] Last Admin: 02/06/18 12:05 Dose: 500 mls/hr Labs: Laboratory Tests 02/06/18 02/06/18 02/06/18 Range/Units 11:38 11:38 14:35 WBC 10.0 (4.5-11.0) K/uL RBC 5.14 (3.30-5.50) M/uL Hgb 15.0 (12.0-15.0) g/dL Hct 42.9 (36.0-48.0) % MCV 84 (80-98) fL MCH 29 (27-31) pg MCHC 35 (32-36) % Plt Count 335 (150-400) K/uL Neut % (Auto) 82 H (36-66) % Lymph % (Auto) 13 L (24-44) % [place] % (Auto) 4 (2-6) % Eos % (Auto) 1 L (2-4) % Baso % (Auto) 0 (0-1) % Sodium 141 (140-148) mmol/L Potassium 3.7 (3.6-5.2) mmol/L Chloride 105 (100-108) mmol/L Carbon Dioxide 25 (21-32) mmol/L Anion Gap 10.9 (5.0-14.0) mmol/L BUN 13 (7-18) mg/dL Creatinine 0.9 (0.6-1.0) mg/dL Est Cr Clr Drug Dosing 53.92 mL/min Estimated GFR (MDRD) > 60 (>60) Glucose 278 H (74-106) mg/dL Calcium 8.5 (8.5-10.1) mg/dL Total Bilirubin 0.3 (0.2-1.0) mg/dL AST 15 (15-37) U/L ALT 28 (12-78) U/L Alkaline Phosphatase 79 (46-116) U/L Total Protein 7.3 (6.4-8.2) g/dL Albumin 3.7 (3.4-5.0) g/dL Globulin 3.6 H (2.3-3.5) g/dL Albumin/Globulin Ratio 1.0 L (1.2-2.2) Lipase 251 (73-393) U/L Urine Color Yellow Urine Appearance Clear Urine pH 8.0 (4.5-8.0) Ur Specific [place] 1.010 (1.008-1.030) Urine Protein Negative (NEGATIVE) mg/dL Urine Glucose (UA) 1000 H (NEGATIVE) mg/dL Urine Ketones Negative (NEGATIVE) mg/dL Urine Occult Blood Negative (NEGATIVE) Urine Nitrite Negative (NEGATIVE) Urine Bilirubin Negative (NEGATIVE) Urine Urobilinogen Normal (NORMAL) mg/dL Ur Leukocyte Esterase Negative (NEGATIVE) Urine RBC 0-5 (0-5) Urine WBC 0-5 (0-5) Ur Epithelial Cells Rare Amorphous Sediment Few Urine Bacteria Rare Urine Mucus Few Meds: Medications Generic Name Dose Route Start Last Admin Trade Name Freq PRN Reason Stop Dose Admin Sodium Chloride 1,000 mls @ 500 mls/hr 02/06/18 11:30 02/06/18 12:05 Normal Saline IV 500 mls/hr ASDIRECTED [facility] Administration Discontinued Medications Generic Name Dose Route Start Last Admin Trade Name Freq PRN Reason Stop Dose Admin Ketorolac Tromethamine 30 mg 02/06/18 12:24 02/06/18 12:30 Toradol IVPUSH 02/06/18 12:25 30 mg ONETIME ONE Administration Metoclopramide HCl 5 mg 02/06/18 11:25 02/06/18 12:05 Reglan IVPUSH 02/06/18 11:26 10 mg ONETIME ONE Administration Pantoprazole Sodium 40 mg 02/06/18 11:57 02/06/18 12:05 Protonix Iv IVPUSH 02/06/18 11:58 40 mg ONETIME ONE Administration Pantoprazole Sodium Confirm 02/06/18 11:58 02/06/18 12:07 Protonix Iv Administered 02/06/18 11:59 Not Given Dose 40 mg .ROUTE .STK-MED ONE - Re-Assessments/Exams Free Text/Narrative Re-Assessment/Exam: 02/06/18 14:36 pain improved but did not resolve. nausea resolved. pt resting Departure - Departure Time of Disposition: 14:36 Disposition: Home, Self-Care 01 Condition: Good Clinical Impression: Gastroenteritis - Discharge Information *PRESCRIPTION DRUG MONITORING PROGRAM REVIEWED*: Not Applicable *COPY OF PRESCRIPTION DRUG MONITORING REPORT IN PATIENT GELA: Not Applicable Instructions: Viral Gastroenteritis, Adult Referrals: PCP,None [Primary Care Provider] - Forms: ED Department Discharge Additional Instructions: reglan 5 mg every 6 hours as needed for nausea clear liquids until tomorrow advance diet as tolerated follow-up with primary care if no improvement - My Orders Last 24 Hours: My Active Orders 02/06/18 11:30 Sodium Chloride 0.9% [Normal Saline] 1,000 ml IV ASDIRECTED 02/06/18 14:35 UA W/MICROSCOPIC [URIN] Stat - Assessment/Plan Last 24 Hours: My Active Orders 02/06/18 11:30 Sodium Chloride 0.9% [Normal Saline] 1,000 ml IV ASDIRECTED 02/06/18 14:35 UA W/MICROSCOPIC [URIN] Stat
[2018-02-06] MEDS: Metoclopramide 10 MG/2 ML SDV IVPUSH ONE (12:05)
[2018-02-06] MEDS: Sodium Chloride 0.9% 1,000 ML IV SCH (12:05)
[2018-02-06] MEDS: Pantoprazole 40 MG Vial IVPUSH ONE (12:05)
[2018-02-06] MEDS: Pantoprazole 40 MG Vial ONE (12:07)
[2018-02-06] MEDS: Ketorolac 30 MG/ML SDV IVPUSH ONE (12:30)
[2018-02-06] MEDS ORDERED: Pantoprazole 40 MG Vial IVPUSH SCH (21:00)
== END 2018-02-06 15:28 | disposition home or self-care (01) ==
LOC: JP.ED 11:02
DX: K52.9 Noninfective gastroenteritis and colitis, unspecified (principal); E11.9 Type 2 diabetes mellitus without complications; Z79.4 Long term (current) use of insulin; Z79.899 Other long term (current) drug therapy
CPT/HCPCS: 36415; 80053; 81001; 83690; 85025; 96361; 96374; 96375; 99284; C9113; J1885; J2765; J7030

== ENCOUNTER 2018-02-08 09:08 | Emergency (ER) | payer OTHER ==
[2018-02-08] MEDS ORDERED: HYDROmorphone 0.5 MG/0.5 ML Syringe IVPUSH ONE ×2 (09:15→11:06)
[2018-02-08] MEDS ORDERED: Ondansetron 4 MG/2 ML SDV IVPUSH ONE (09:15)
[2018-02-08] MEDS ORDERED: Sodium Chloride 0.9% 1,000 ML IV SCH (09:15)
--- NOTE | 2018-02-08 10:06 | EDM.PDOC ---
ED HPI GENERAL MEDICAL PROBLEM - General Chief Complaint: Abdominal Pain Stated Complaint: STOMACH PAIN Time Seen by Provider: 02/08/18 09:20 Source of Information: Reports: Patient History Limitations: Reports: No Limitations - History of Present Illness INITIAL COMMENTS - FREE TEXT/NARRATIVE: 52-year-old female with abdominal pain, persistent nausea and vomiting who was seen 2 days ago and had a negative workup and diagnosed with gastroenteritis. Her symptoms are persisting so she came in by private car this morning, is actively vomiting, retching, and having epigastric discomfort. She initially was very uncomfortable. No fever. Onset: Unknown/Unsure Severity: Severe Associated Symptoms: Reports: Loss of Appetite, Nausea/Vomiting. 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: Psychiatric History: Reports: Anxiety, Depression, PTSD Endocrine/Metabolic History: Reports: Diabetes, Type II - Past Surgical History GI Surgical History: Reports: Appendectomy, Cholecystectomy Female Surgical History: Reports: Section Social & Family History - Caffeine Use Caffeine Use: Reports: Coffee ED ROS GENERAL - Review of Systems Review Of Systems: See Below Constitutional: Reports: Malaise Respiratory: Denies: Shortness of Breath Cardiovascular: Denies: Chest Pain GI/Abdominal: Reports: Abdominal Pain, Nausea, Vomiting Skin: Reports: No Symptoms Neurological: Denies: Headache ED EXAM, GI/ABD - Physical Exam Exam: See Below Exam Limited By: No Limitations General Appearance: Alert, Moderate Distress Eyes: Bilateral: Normal Appearance (No jaundice) Head: Atraumatic Respiratory/Chest: No Respiratory Distress, Lungs Clear Cardiovascular: Regular Rate, Rhythm Extremities: No: Pedal Edema Neurological: Alert, Oriented Psychiatric: Anxious Skin Exam: Warm, Dry Course - Vital Signs Last Recorded V/S: Last Vital Signs Temp 98.9 F 02/08/18 09:49 Pulse 72 02/08/18 11:40 Resp 18 02/08/18 11:40 BP 159/70 H 02/08/18 11:40 Pulse Ox 100 02/08/18 11:40 - Orders/Labs/Meds Labs: Laboratory Tests 02/08/18 02/08/18 02/08/18 Range/Units 09:35 09:35 09:50 WBC 9.2 (4.5-11.0) K/uL RBC 5.62 H (3.30-5.50) M/uL Hgb 16.2 H (12.0-15.0) g/dL Hct 45.6 (36.0-48.0) % MCV 81 (80-98) fL MCH 29 (27-31) pg MCHC 36 (32-36) % Plt Count 369 (150-400) K/uL Neut % (Auto) 77 H (36-66) % Lymph % (Auto) 16 L (24-44) % [place] % (Auto) 6 (2-6) % Eos % (Auto) 1 L (2-4) % Baso % (Auto) 1 (0-1) % Puncture Site Left brach ABG pH 7.397 (7.350-7.450) ABG pCO2 39.2 (35.0-42.0) mmHg ABG pO2 61.5 L (75.0-100.0) mmHg ABG HCO3 23.6 (22.0-26.0) mmol/L ABG Total CO2 20.5 L (21.0-25.0) mmol/L ABG O2 Saturation 90.6 L (95.0-98.0) % ABG O2 Content 18.8 (15.0-23.0) %vol ABG Base Excess -0.5 mm/L ABG Hemoglobin 15.3 (12.0-16.0) g/dL ABG Oxyhemoglobin 87.5 % ABG Carboxyhemoglobin 2.7 H (0.0-1.6) % ABG Methemoglobin 0.7 % John Test Passed O2 Delivery Device Room air Sodium 135 L (140-148) mmol/L Potassium 3.3 L (3.6-5.2) mmol/L Chloride 99 L (100-108) mmol/L Carbon Dioxide 25 (21-32) mmol/L Anion Gap 14.3 H (5.0-14.0) mmol/L BUN 31 H D (7-18) mg/dL Creatinine 1.0 (0.6-1.0) mg/dL Est Cr Clr Drug Dosing 48.53 mL/min Estimated GFR (MDRD) 58 L (>60) Glucose 296 H (74-106) mg/dL Calcium 9.3 (8.5-10.1) mg/dL Total Bilirubin 0.9 D (0.2-1.0) mg/dL AST 20 (15-37) U/L ALT 30 (12-78) U/L Alkaline Phosphatase 85 (46-116) U/L Total Protein 7.9 (6.4-8.2) g/dL Albumin 4.1 (3.4-5.0) g/dL Globulin 3.8 H (2.3-3.5) g/dL Albumin/Globulin Ratio 1.1 L (1.2-2.2) Lipase 238 (73-393) U/L Meds: Medications Discontinued Medications Generic Name Dose Route Start Last Admin Trade Name Freq PRN Reason Stop Dose Admin Hydromorphone HCl 0.5 mg 02/08/18 09:15 02/08/18 09:42 Dilaudid IVPUSH 02/08/18 09:16 0.5 mg ONETIME ONE Administration Hydromorphone HCl 0.5 mg 02/08/18 11:06 02/08/18 11:10 Dilaudid IVPUSH 02/08/18 11:07 0.5 mg ONETIME ONE Administration Sodium Chloride 1,000 mls @ 1,000 mls/hr 02/08/18 09:15 02/08/18 09:41 Normal Saline IV 1,000 mls/hr ASDIRECTED EYAL Administration Sodium Chloride 74 mls @ 3 mls/sec 02/08/18 11:00 02/08/18 11:22 Normal Saline IV 3 mls/sec ASDIRECTED EYAL Administration Iopamidol 91 ml 02/08/18 11:00 02/08/18 11:22 Isovue-300 (61%) IV 91 ml . DIRECTED EYAL Administration Ondansetron HCl 4 mg 02/08/18 09:15 02/08/18 09:39 Zofran IVPUSH 08/13/18 09:16 4 mg ONETIME ONE Administration Sodium Chloride 10 ml 02/08/18 10:57 02/08/18 11:10 Saline Flush FLUSH 02/08/18 10:58 10 ml ONETIME ONE Administration - Re-Assessments/Exams Free Text/Narrative Re-Assessment/Exam: 02/08/18 10:04 An IV was placed and the patient given IV fluids. Her records were reviewed, 2 days ago her workup was generally negative but she had opiates in her urine. 02/08/18 10:05 4 mg of IV Zofran and 0.5 mg of IV Dilaudid were given and the patient's symptoms almost completely resolved. I discussed my concern with the patient that this could possibly be opioid related, and she admitted she stopped her Suboxone 3 days ago. She has been taking it for the last year for heroin addiction. She does not want to take it anymore. CBC, CMP were obtained. ABGs also obtained. 02/08/18 11:12 CBC was normal, ABGs were reassuring. CMP did reveal an elevated BUN which was normal 2 days ago, GFR is 58 indicating some dehydration. Creatinine however is 1.0. The patient had about 1 hour of marked improvement after the medications were given, but then started to have abdominal cramps and retching again. She wanted to be admitted until her symptoms resolved. We then did a CT the abdomen and pelvis with IV contrast after she received 1 L of fluid. An additional 0.5 mg of Dilaudid was given prior to the CT scan. 02/08/18 12:06 CT the abdomen and pelvis was normal. Patient again became very comfortable after the IV Dilaudid. I discussed her condition with Dr. Danielle, and the recommendation was made to send her to detox at [facility]. This was arranged. She was also discharged with 5 additional doses of Zofran to use sublingual. Departure - Departure Time of Disposition: 12:39 Disposition: DC/Tfer to Other Condition: Fair Clinical Impression: Acute narcotic withdrawal without complication Abdominal pain Qualifiers: Abdominal location: upper abdomen, unspecified Qualified Code(s): R10.10 - Upper abdominal pain, unspecified - Discharge Information Instructions: Nausea and Vomiting, Adult, [id number] Referrals: PCP,None [Primary Care Provider] - Forms: ED Department Discharge Care Plan Goals: Go directly to [facility] to be admitted for help with detoxification from Suboxone.
[2018-02-08] MEDS ORDERED: Sodium Chloride 0.9% 10 ML Syringe FLUSH ONE (10:57)
[2018-02-08] MEDS ORDERED: Iopamidol 612 MG/ML 100 ML Bottle IV SCH (11:00)
--- NOTE | 2018-02-08 11:38 | CT ---
Abdomen pelvis CT. History: Severe pain. Emesis. Technique: IV contrast was administered followed by axial imaging from the lung bases extending throu gh the abdomen and pelvis. Coronal images were reconstructed. Auto dosage reduction and iterative rec onstruction techniques were employed. Findings: Limited evaluation of the lower lung murphy demonstrates no abnormalities. There are no focal hepatic abnormalities. The gallbladder is absent. There is mild prominence of the common mild duct measuring 1.3 cm The pancreas and adjacent tissues are normal in appearance. The spl een is normal in size. The adrenal glands are symmetric. The kidneys demonstrate symmetric excretion of contrast. There is no hydronephrosis. There is no large or small bowel distention. There is no wall thickening or inflammation. There are s cattered colonic diverticula. There is no free air or free fluid. There are no skeletal lesions. Impression: 1. No acute findings of the abdomen or pelvis.
[2018-02-08 11:40] VITALS: BP 159/70
== END 2018-02-08 12:53 | disposition other institution (70) ==
LOC: JP.ED 09:08
DX: F11.23 Opioid dependence with withdrawal (principal); E11.9 Type 2 diabetes mellitus without complications; Z79.4 Long term (current) use of insulin
CPT/HCPCS: 36415; 36600; 74177; 80053; 82803; 83690; 85025; J1170; J2405; J7030; J7050; Q9967; 96374; 96375; 96376; 99285-25